=== PATIENT | male | born 1995 | race African-American/Black ===

== ENCOUNTER 2019-09-13 03:20 | Emergency (ER) | payer SELFPAY ==
[~2019-09-13] VITALS: Ht 167.6 cm; Wt 85.0 kg
[2019-09-13 03:55] VITALS: BP 108/50
[2019-09-13] MEDS ORDERED: IBUPROFEN 600MG TABLET PO ONE (04:15)
[2019-09-13] MEDS ORDERED: LIDOCAINE HCL 1% 20ML VIAL (Pyxis) INJ INFIL ONE (04:45)
== END 2019-09-13 05:03 | disposition home or self-care (01) ==
LOC: ER 03:20
DX: S63.281A Dislocation of proximal interphalangeal joint of left index finger, initial encounter (principal); V49.88XA Car occupant (driver) (passenger) injured in other specified transport accidents, initial encounter; Y93.89 Activity, other specified; Y92.89 Other specified places as the place of occurrence of the external cause; Y99.8 Other external cause status
CPT/HCPCS: 26770; 73130; 73140; 99284

== ENCOUNTER 2020-04-12 00:58 | Emergency (ER) | payer SELFPAY ==
[~2020-04-12] VITALS: Ht 167.6 cm; Wt 87.0 kg
[2020-04-12] MEDS ORDERED: DIPHENHYDRAMINE 50MG CAPSULE PO ONE (01:15)
[2020-04-12] MEDS ORDERED: FAMOTIDINE 20MG TABLET PO ONE (01:15)
[2020-04-12] MEDS ORDERED: PREDNISONE 20MG TABLET PO ONE (01:15)
[2020-04-12 02:54] VITALS: BP 136/84
== END 2020-04-12 03:00 | disposition home or self-care (01) ==
LOC: ER 00:58
DX: T78.1XXA Other adverse food reactions, not elsewhere classified, initial encounter (principal); L50.9 Urticaria, unspecified; F12.10 Cannabis abuse, uncomplicated; X58.XXXA Exposure to other specified factors, initial encounter
CPT/HCPCS: 99284; J7512; Q0163